=== PATIENT | male | born 1935 | race Caucasian/White ===

== ENCOUNTER 2018-11-10 10:46 | Inpatient (IN) | payer MEDICARE ==
[2018-11-10] MEDS ORDERED: ASPIRIN 81 MG PO STA (11:08)
--- NOTE | 2018-11-10 11:13 | ED ---
General Adult HPI - General Chief complaint: Shortness of Breath Stated complaint: SOB Time Seen by Provider: 11/10/18 10:58 Source: patient, EMS Mode of arrival: EMS Limitations: no limitations - History of Present Illness Initial comments: Patient is an 83-year-old male with a history of hypertension and high cholesterol who presents with a chief complaint of acute onset shortness of breath and lightheadedness while mowing his lawn. Symptom onset was about 2 hours ago. Patient states that he sometimes gets winded when mowing his lawn as he is a 4 hour however this was worse, and his symptoms did not alleviate as they usually do with rest. The patient cannot identify any other inciting incidences. There are no aggravating or alleviating factors. Timing is constant. Patient has not had any previous cardiac history or strokes. He has a family history of a congenital heart condition and his father. He is not diabetic. The patient denied chest pain, nausea or vomiting. Patient states that he had a stress test about 2 years ago with an annual physical. - Related Data Home Medications Medication Instructions Recorded Confirmed Cephalexin [Keflex] 500 mg PO TID 11/10/18 11/10/18 Ramipril 5 mg PO DAILY 11/10/18 11/10/18 Ramipril 10 mg PO DAILY 11/10/18 11/10/18 Simvastatin [Zocor] 20 mg PO DAILY 11/10/18 11/10/18 Allergies Allergy/AdvReac Type Severity Reaction Status Date / Time No Known Allergies Allergy Verified 11/10/18 11:47 Review of Systems ROS Statement: Those systems with pertinent positive or pertinent negative responses have been documented in the HPI. ROS Other: All systems not noted in ROS Statement are negative. Respiratory: Reports: dyspnea Cardiovascular: Reports: dyspnea on exertion Past Medical History Past Medical History: Cancer, Hyperlipidemia, Hypertension, Osteoarthritis (OA), Prostate Disorder Additional Past Medical History / Comment(s): malignant melanoma History of Any Multi-Drug Resistant Organisms: None Reported Additional Past Surgical History / Comment(s): skin cancer removal Past Psychological History: No Psychological Hx Reported Smoking Status: Never smoker Past Alcohol Use History: Occasional Past Drug Use History: None Reported General Exam Limitations: no limitations General appearance: alert, in no apparent distress Head exam: Present: atraumatic, normocephalic Eye exam: Present: normal appearance ENT exam: Present: normal exam Neck exam: Present: normal inspection Respiratory exam: Present: normal lung sounds bilaterally. Absent: respiratory distress, wheezes Cardiovascular Exam: Present: regular rate, normal rhythm GI/Abdominal exam: Present: soft. Absent: distended, tenderness Rectal exam: Present: deferred Extremities exam: Present: normal inspection Back exam: Present: normal inspection Neurological exam: Present: alert, oriented X3 Psychiatric exam: Present: normal affect, normal mood Skin exam: Present: warm, dry, intact, other (patient has excisional biopsy wounds on his right posterior shoulder) Course Vital Signs 11/10/18 11/10/18 11/10/18 10:49 11:30 12:00 Temperature 97.2 F L Pulse Rate 95 89 86 Respiratory 18 20 17 Rate Blood Pressure 137/87 152/86 138/76 O2 Sat by Pulse 93 L 96 96 Oximetry 11/10/18 12:30 Temperature Pulse Rate 84 Respiratory 18 Rate Blood Pressure 140/82 O2 Sat by Pulse 95 Oximetry Medical Decision Making - Medical Decision Making Patient is an 83-year-old male who presents with a chief complaint of exertional shortness of breath or mowing his lawn. On initial evaluation, vitals are stable, patient is in no acute distress. He will be evaluated with basic labs including cardiac enzymes and d-dimer. He was given aspirin and will be sent for a chest x-ray. At this time, I'm concerned for an anginal picture, I recommended admission for further cardiac evaluation. Patient is agreeable. 2:01 PM D-dimer is extremely elevated over 13, CT of the chest with contrast shows a large burden central pulmonary embolism bilateral cell embolism. This extends to the secondary and distal branches. Patient started on high intensity heparin. We'll discuss pulmonology whether or not the patient would benefit from transfer. Patient remains ambulatory in the emergency department, his vital signs are stable. Case discussed with Dr. Gan who states that he feels comfortable admitting the patient to this hospital. Patient started on high intensity heparin. Echocardiogram ordered. 2:44 PM Case discussed with some physician who agrees to admission. Patient agreeable with the care plan. - Lab Data Result diagrams: 11/10/18 10:57 11/10/18 10:57 Lab Results 11/10/18 11/10/18 11/10/18 Range/Units 10:57 10:57 10:57 WBC 10.3 (3.8-10.6) k/uL RBC 4.98 (4.30-5.90) m/uL Hgb 14.5 (13.0-17.5) gm/dL Hct 45.0 (39.0-53.0) % MCV 90.2 (80.0-100.0) fL MCH 29.2 (25.0-35.0) pg MCHC 32.3 (31.0-37.0) g/dL RDW 14.4 (11.5-15.5) % Plt Count 227 (150-450) k/uL Neutrophils % 70 % Lymphocytes % 13 % Monocytes % 7 % Eosinophils % 6 % Basophils % 1 % Neutrophils # 7.3 (1.3-7.7) k/uL Lymphocytes # 1.3 (1.0-4.8) k/uL Monocytes # 0.7 (0-1.0) k/uL Eosinophils # 0.7 (0-0.7) k/uL Basophils # 0.1 (0-0.2) k/uL D-Dimer 13.67 H (<0.60) mg/L FEU Sodium 139 (137-145) mmol/L Potassium 4.7 (3.5-5.1) mmol/L Chloride 106 (98-107) mmol/L Carbon Dioxide 24 (22-30) mmol/L Anion Gap 9 mmol/L BUN 21 H (9-20) mg/dL Creatinine 0.90 (0.66-1.25) mg/dL Est GFR (CKD-EPI)AfAm >90 (>60 ml/min/1.73 sqM) Est GFR (CKD-EPI)NonAf 79 (>60 ml/min/1.73 sqM) Glucose 119 H (74-99) mg/dL Calcium 9.3 (8.4-10.2) mg/dL Troponin I (0.000-0.034) ng/mL NT-Pro-B Natriuret Pep pg/mL 11/10/18 11/10/18 Range/Units 10:57 10:57 WBC (3.8-10.6) k/uL RBC (4.30-5.90) m/uL Hgb (13.0-17.5) gm/dL Hct (39.0-53.0) % MCV (80.0-100.0) fL MCH (25.0-35.0) pg MCHC (31.0-37.0) g/dL RDW (11.5-15.5) % Plt Count (150-450) k/uL Neutrophils % % Lymphocytes % % Monocytes % % Eosinophils % % Basophils % % Neutrophils # (1.3-7.7) k/uL Lymphocytes # (1.0-4.8) k/uL Monocytes # (0-1.0) k/uL Eosinophils # (0-0.7) k/uL Basophils # (0-0.2) k/uL D-Dimer (<0.60) mg/L FEU Sodium (137-145) mmol/L Potassium (3.5-5.1) mmol/L Chloride (98-107) mmol/L Carbon Dioxide (22-30) mmol/L Anion Gap mmol/L BUN (9-20) mg/dL Creatinine (0.66-1.25) mg/dL Est GFR (CKD-EPI)AfAm (>60 ml/min/1.73 sqM) Est GFR (CKD-EPI)NonAf (>60 ml/min/1.73 sqM) Glucose (74-99) mg/dL Calcium (8.4-10.2) mg/dL Troponin I 0.015 (0.000-0.034) ng/mL NT-Pro-B Natriuret Pep 209 pg/mL Disposition Clinical Impression: SOB (shortness of breath), Saddle pulmonary embolus Disposition: ADMITTED IP TO THIS HOSP Condition: Fair Is patient prescribed a controlled substance at d/c from ED?: No Referrals: Arti Atkinson MD [Primary Care Provider] - 1-2 days Decision to Admit Reason: Admit from EC - Out of Hospital Transfer - Req. Specs Out of Hospital Transfer - Requested Specifics: Adult ICU
--- NOTE | 2018-11-10 11:30 | XR ---
EXAMINATION TYPE: XR chest 2V DATE OF EXAM: 11/10/2018 COMPARISON: NONE HISTORY: Shortness of breath, pain TECHNIQUE: Frontal and lateral views of the chest are obtained. FINDINGS: There is no focal air space opacity, pleural effusion, or pneumothorax seen. The cardiac silhouette size is within normal limits. There are cardiac leads. Patient is rotated. Flattening of t he hemidiaphragms may indicate air trapping, COPD. The osseous structures are intact. IMPRESSION: No acute cardiopulmonary process.
[2018-11-10 11:40] LABS: Basophils # (A) 0.1 k/uL (0-0.2); Basophils % (A) 1 %; Eosinophils # (A) 0.7 k/uL (0-0.7); Eosinophils % (A) 6 %; HGB 14.5 gm/dL (13.0-17.5); Lymphocytes # (A) 1.3 k/uL (1.0-4.8); Lymphocytes % (A) 13 %; MCH 29.2 pg (25.0-35.0); MCHC 32.3 g/dL (31.0-37.0); MCV 90.2 fL (80.0-100.0); Mean Platelet Volume 7.8; Monocytes # (A) 0.7 k/uL (0-1.0); Monocytes % (A) 7 %; Neutrophils # (A) 7.3 k/uL (1.3-7.7); Neutrophils % (A) 70 %; Platelet Count 227 k/uL (150-450); RBC 4.98 m/uL (4.30-5.90); RDW 14.4 % (11.5-15.5); WBC 10.3 k/uL (3.8-10.6)
[2018-11-10 11:51] LABS: African American GFR (CKD) >90 (>60 ml/min/1.73 sqM); Anion Gap 9 mmol/L; Blood Urea Nitrogen 21 mg/dL (9-20); Calcium 9.3 mg/dL (8.4-10.2); Carbon Dioxide 24 mmol/L (22-30); Chloride 106 mmol/L (98-107); Glucose 119 mg/dL (74-99); Sodium 139 mmol/L (137-145)
[2018-11-10 11:52] LABS: Potassium 4.7 mmol/L (3.5-5.1)
--- NOTE | 2018-11-10 13:45 | CT ---
EXAMINATION TYPE: CT chest angio for PE DATE OF EXAM: 11/10/2018 COMPARISON: HISTORY: Shortness of breath CT DLP: 403.7 mGycm Automated exposure control for dose reduction was used. CONTRAST: CT Chest for pulmonary embolism performed with with IV Contrast, patient injected with 100 mL of Isov ue 370. FINDINGS: LUNGS: The lungs are grossly clear, there is no concerning parenchymal mass or nodule identified. T here is no pleural effusion or pneumothorax seen. The tracheobronchial tree is patent. Calcified 2 m m right upper lobe pleural-based nodule. Emphysematous changes with a bleb noted in the left lower lo be. Subsegmental consolidation most typical of atelectasis. MEDIASTINUM: There is large central pulmonary embolism extending into the secondary and distal branch es. Findings are compatible with a saddle pulmonary embolism extending across both the right and left main pulmonary arteries. OTHER: Simple appearing left renal cyst. Hypertrophic and degenerative change of the spine. Hypodens e lesions in the liver are indeterminate but most likely related to simple cysts measuring 3 Hounsfie ld units. Small hiatal hernia noted. IMPRESSION: Large burden central pulmonary embolism compatible with saddle embolism. Extends into the secondary a nd distal branches.
[2018-11-10] MEDS ORDERED: HEPARIN SODIUM,PORCINE 10,000 UNIT/ML 1 ML VIAL IV ONE (13:59)
[2018-11-10] MEDS ORDERED: HEPARIN SODIUM,PORCINE 5,000 UNIT/ML 1 ML VIAL IV PRN (13:59)
[2018-11-10] MEDS ORDERED: NALOXONE 0.4 MG/ML 1 ML VIAL IV PRN (14:45)
[2018-11-10 15:02] LABS: INR 0.9 (<1.2); Partial Thromboplastin Time 22.7 sec (22.0-30.0); Prothrombin Time 9.9 sec (9.0-12.0)
[2018-11-10] MEDS: HEPARIN SOD,PORK IN 0.45% NACL 25,000 UNIT in 0.45% NACL 1 250ML.BAG IV SCH (15:42)
[2018-11-10] MEDS: SODIUM CHLORIDE 0.9% 1,000 ML IV SCH (15:45)
[2018-11-10 16:17] VITALS: BMI 27.8
[2018-11-10 16:18] LABS: Glucose,Whole Blood 84 mg/dL (75-99)
--- NOTE | 2018-11-10 16:51 | P.HPIM ---
History of Present Illness H&P Date: 11/10/18 Chief Complaint: chest pain 83-year-old male with PMH of hypertension, hyperlipidemia presents the ED for shortness of breath and lightheadedness. Patient states that he was 10 minutes into moving his lawn when he experienced a sudden onset of shortness of breath associated with light headedness. Patient states that he is usually able to mow the lawn without difficulty. He mows the lawn once a week for 30 minute to one hour. Patient states that he walks to his mailbox daily, which is [address] without difficulty. He is able to climb one flight of stairs without difficulty. Patient does reports frequent trips to [place], most recently in mid-September. Him and his spent 3 days driving back this time. Patient denies any headache, lower extremity edema, nausea, vomiting, cough, chest, palpitations, changes in urination or bowel habits. No changes in appetite or weight. In the ED, vital signs were stable. CBC was unremarkable. Coagulation panel was negative. CMP showed a BUN of 21 and glucose of 119. Troponin was 0.015. BNP was 209. D-dimer was elevated at 13.67. CTA of the chest showed saddle embolus. Patient is admitted to ICU for hemodynamic monitoring with pulmonology on consult. Review of Systems Pertinent positives and negatives as discussed in HPI, a complete review of systems was performed and all other systems are negative. Past Medical History Past Medical History: Cancer, Hyperlipidemia, Hypertension, Osteoarthritis (OA), Prostate Disorder Additional Past Medical History / Comment(s): malignant melanoma History of Any Multi-Drug Resistant Organisms: None Reported Additional Past Surgical History / Comment(s): skin cancer removal Smoking Status: Never smoker Medications and Allergies Home Medications Medication Instructions Recorded Confirmed Type Cephalexin [Keflex] 500 mg PO TID 11/10/18 11/10/18 History Ramipril 5 mg PO DAILY 11/10/18 11/10/18 History Ramipril 10 mg PO DAILY 11/10/18 11/10/18 History Simvastatin [Zocor] 20 mg PO DAILY 11/10/18 11/10/18 History Allergies Allergy/AdvReac Type Severity Reaction Status Date / Time No Known Allergies Allergy Verified 11/10/18 11:47 Physical Exam Vitals: Vital Signs Temp Pulse Pulse Resp BP BP Pulse Ox 11/10/18 15:05 98.5 F 93 18 129/96 11/10/18 15:00 88 17 121/73 93 L 11/10/18 12:30 84 18 140/82 95 11/10/18 12:00 86 17 138/76 96 11/10/18 11:30 89 20 152/86 96 11/10/18 10:49 97.2 F L 95 18 137/87 93 L Intake and Output 11/10/18 11/10/18 11/10/18 06:59 14:59 22:59 Other: Weight 92.986 kg General: [non toxic], [no distress], [appears at stated age] Derm: [warm], [dry] Head: [atraumatic], [normocephalic], [symmetric], [flap was stitches over the left neck, no erythema] Eyes: [EOMI], [no lid lag], [anicteric sclera] Mouth: [no lip lesion], [mucus membranes moist] Cardiovascular: [S1S2 reg], [no murmur], [positive DP pulse bilateral], Lungs: [CTA bilateral], [no rhonchi, no rales] , [no accessory muscle use] Abdominal: [soft], [ nontender to palpation], [no guarding], [no appreciable o rganomegaly] Ext: [no gross muscle atrophy], [no edema], [no contractures] Neuro: [ CN II-XI grossly intact], [no focal neuro deficits] Psych: [Alert], [oriented], [appropriate affect] Results CBC & Chem 7: 11/10/18 10:57 11/10/18 10:57 Labs: Abnormal Lab Results - Last 24 Hours (Table) 11/10/18 11/10/18 Range/Units 10:57 10:57 D-Dimer 13.67 H (<0.60) mg/L FEU BUN 21 H (9-20) mg/dL Glucose 119 H (74-99) mg/dL Assessment and Plan Assessment: Assessment and Plan Acute pulmonary embolus Elevated BUN History of skin cancer Hypertension Hyperlipidemia Elevated d-dimer. As seen on chest CTA. Risk factors include history of cancer and drives to [place]. Plans: O2 per NC to maintain O2 saturation greater than 92%. Telemetry monitoring. Start heparin drip. Follow-up echocardiogram. Follow pulmonology consultation. Follow hematology consultation. BUN 21, creatinine within normal limits. Likely secondary to dehydration. Plans: Continue normal saline at 75 mL per hour. Daily BMP. Recently underwent biopsy of the right shoulder and flap performed on the left neck. Plans: Continue Keflex as prescribed. Follow [facility] in the outpatient setting. BP 129/96. Plans: Continue ramipril. Monitor vitals, adjust medications as necessary. Plans: Continue Zocor. Patient admitted for saddle embolus. Started on heparin drip. Pulmonology and hematology consulted. He names his Erika decision-maker in the case that he can't make decisions for himself. Patient reiterates wanting to remain full code. DVT prophylaxis: [Heparin drip] Discussed with: [Patient] Anticipated discharge: [2-3 days] Anticipated discharge place: [Home] A total of [45] minutes was spent on the care of this complex patient more than 50% of the time was spent in counseling and care coordination.
--- NOTE | 2018-11-10 18:05 | P.CNPUL ---
History of Present Illness Consult date: 11/10/18 Reason for consult: pulmonary embolism History of present illness: A 83-year-old male patient, with known history of hypertension and hyperlipid emia, presents today with sudden onset shortness of breath. The patient is retired. The patient is back and forth to [place] and his last trip back to [place] was in mid September. He also has history of a basal cell carcinoma of the skin behind his left ear and the patient underwent a surgical resection by dermatology few weeks back. He states that he is quite active and he does not need a sedentary lifestyle. No cough pain. No swelling in lower extremities. No pleurisy. No hemoptysis. He presented with worsening shortness of breath and some lightheadedness. This started this morning. His vital signs are all stable. His troponins were at 0.015. BNP was 209. D-dimer was positive at 13.67. CAT scan of the chest showed a saddle embolism and the patient was started on IV heparin and the patient was transferred to the intensive care unit. At this point in time, the patient is on 2 L of oxygen nasal cannula. No cough. No sputum production. No pleurisy. No chest pain. Doppler of the lower extremity and echocardiogram is still pending for now. The patient has never taken any form of blood thinners. No history of any GI bleed. No hematemesis. No melanotic stools. No other complaints otherwise for now. No personal or family history of previous DVT or pulmonary embolism. He has had previous history of melanoma that was resected from the left shoulder area and previous history of another melanoma that was resected from his left lower extremity. No history of any metastatic disease regarding his skin cancer. Review of Systems Constitutional: Denies chills, Denies fever Eyes: denies as per HPI, denies blurred vision, denies bulging eye, denies decreased vision, denies diplopia, denies discharge, denies dry eye, denies irritation, denies itching, denies pain, denies photophobia, denies loss of peripheral vision, denies loss of vision, denies tunnel vision/blind spots Ears: deny: decreased hearing, ear discharge, earache, tinnitus Ears, nose, mouth and throat: Denies headache, Denies sore throat Cardiovascular: Reports decreased exercise tolerance Respiratory: Reports dyspnea Gastrointestinal: Reports as per HPI Genitourinary: Reports as per HPI Musculoskeletal: Reports as per HPI Musculoskeletal: absent: ankle pain, ankle stiffness, ankle swelling Integumentary: Denies pruritus, Denies rash Neurological: Reports as per HPI Psychiatric: Reports as per HPI Endocrine: Reports as per HPI Hematologic/Lymphatic: Reports as per HPI Allergic/Immunologic: Reports as per HPI Past Medical History Past Medical History: Cancer, Hyperlipidemia, Hypertension, Osteoarthritis (OA), Prostate Disorder Additional Past Medical History / Comment(s): malignant melanoma resected from t he left shoulder and lower extremity in addition to a 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 History of Any Multi-Drug Resistant Organisms: None Reported Additional Past Surgical History / Comment(s): skin cancer removal Smoking Status: Never smoker Medications and Allergies Home Medications Medication Instructions Recorded Confirmed Type Cephalexin [Keflex] 500 mg PO TID 11/10/18 11/10/18 History Ramipril 5 mg PO DAILY 11/10/18 11/10/18 History Ramipril 10 mg PO DAILY 11/10/18 11/10/18 History Simvastatin [Zocor] 20 mg PO DAILY 11/10/18 11/10/18 History Allergies Allergy/AdvReac Type Severity Reaction Status Date / Time No Known Allergies Allergy Verified 11/10/18 11:47 Physical Exam Vitals: Vital Signs Temp Pulse Pulse Resp BP BP Pulse Ox 11/10/18 17:30 94 19 128/98 94 L 11/10/18 17:00 91 18 142/90 97 11/10/18 16:30 89 20 129/96 97 11/10/18 16:00 98.4 F 95 18 143/102 93 L 11/10/18 15:05 98.5 F 93 18 129/96 11/10/18 15:00 88 17 121/73 93 L 11/10/18 12:30 84 18 140/82 95 11/10/18 12:00 86 17 138/76 96 11/10/18 11:30 89 20 152/86 96 11/10/18 10:49 97.2 F L 95 18 137/87 93 L Intake and Output 11/10/18 11/10/18 11/10/18 06:59 14:59 22:59 Intake Total 300 Output Total 0 Balance 300 Intake: IV 150 Sodium Chloride 0.9% 1, 150 000 ml @ 75 mls/hr IV . [id number] [facility] Rx#:[id number] Oral 150 Output: Urine 0 Other: Voiding Method Toilet Weight 92.986 kg Gen. appearance, comfortable likely distress Head exam was generally normal. There was no scleral icterus or corneal arcus. Mucous membranes were moist. Neck was supple and without jugular venous distension, thyromegaly, or carotid bruits. Carotids were easily palpable bilaterally. There was no adenopathy. The patient has a skin lesion resected from the left posterior area and the children are all in place. The surgical wound site is dry clean and intact. Lungs were clear to auscultation and percussion, and with normal diaphragmatic excursion. No wheezes or rales were noted. Cardiac exam revealed the PMI to be normally situated and sized. The rhythm was regular and no extrasystoles were noted during several minutes of auscultation. The first and second heart sounds were normal and physiologic splitting of the second heart sound was noted. There were no murmurs, rubs, clicks, or gallops. Abdominal exam revealed normal bowel sounds. The abdomen was soft, non-tender, and without masses, organomegaly, or appreciable enlargement of the abdominal aorta. Examination of the extremities revealed easily palpable radial, femoral and pedal pulses. There was no cyanosis, clubbing or edema. Examination of the skin revealed no evidence of significant rashes, suspicious appearing nevi or other concerning lesions. The patient has scars of previous melanoma resection from his left shoulder area and lower extremity/thigh area. The patient also has another area of incision that is healing for now and the sutures are in place and the retroauricular area behind his left ear. Neurologically is awake and alert and there is no focal neurological deficits. Results - Laboratory Findings CBC and BMP: 11/10/18 10:57 11/10/18 10:57 PT/INR, D-dimer PT 9.9 sec (9.0-12.0) 11/10/18 10:57 INR 0.9 (<1.2) 11/10/18 10:57 D-Dimer 13.67 mg/L FEU (<0.60) H 11/10/18 10:57 Abnormal lab findings: Abnormal Labs 11/10/18 11/10/18 10:57 10:57 D-Dimer 13.67 H BUN 21 H Glucose 119 H - Diagnostic Findings CT scan - chest: image reviewed Assessment and Plan Plan: 1 acute bilateral pulmonary embolism with secondary shortness of breath, unprovoked event currently on IV heparin. Hemodynamically stable 2 shortness of breath secondary to above 3 history of melanoma 4 history of basal cell carcinoma of the posterior scalp and the retroauricular area and the patient had a surgical resection 5 hypertension Plan Continue IV heparin. Obtain Doppler of the lower extremity. Obtain echocardiogram. Patient is hemodynamically stable. This is an unprovoked event and the patient will likely need long-term anticoagulation. We are going to continue the IV heparin for now and try to switch the patient to a newer agent anticoagulants with the next 24-48 hours. We'll continue to follow.
--- NOTE | 2018-11-10 19:12 | US ---
EXAMINATION TYPE: US venous doppler duplex LE DATE OF EXAM: 11/10/2018 6:30 PM COMPARISON: NONE CLINICAL HISTORY: Sattle PE. Sattle PE per order. Limited HX. SIDE PERFORMED: Bilateral TECHNIQUE: The lower extremity deep venous system is examined utilizing real time linear array sonog darleen with graded compression, doppler sonography and color-flow sonography. VESSELS IMAGED: External Iliac Vein (EIV) Common Femoral Vein Deep Femoral Vein Greater Saphenous Vein * Femoral Vein Popliteal Vein Proximal Calf Veins (* superficial vessels) Right Leg: Thrombus seen extending from right proximal calf veins up to the mid femoral vein. Thread y flow seen mid and distal femoral vein. Mid and distal femoral vein do not compress completely. Popl iteal vein shows thrombus and is noncompressible. Thready flow seen in popliteal vein. Left Leg: No evidence of DVT at this time. IMPRESSION: No evidence of deep venous thrombosis in the left leg. There is evidence of acute and chronic deep venous thrombosis in the right leg.
[2018-11-10] MEDS: CEPHALEXIN 500 MG CAP PO SCH (21:47)
[2018-11-11] MEDS: SODIUM CHLORIDE 0.9% 1,000 ML IV SCH ×2 (05:47→18:44)
[2018-11-11 05:49] LABS: Basophils # (A) 0.1 k/uL (0-0.2); Basophils % (A) 1 %; Eosinophils # (A) 0.6 k/uL (0-0.7); Eosinophils % (A) 7 %; HCT 42.8 % (39.0-53.0); HGB 13.4 gm/dL (13.0-17.5); Lymphocytes # (A) 1.3 k/uL (1.0-4.8); Lymphocytes % (A) 14 %; MCH 28.4 pg (25.0-35.0); MCHC 31.3 g/dL (31.0-37.0); MCV 90.7 fL (80.0-100.0); Mean Platelet Volume 8.1; Monocytes # (A) 0.6 k/uL (0-1.0); Monocytes % (A) 7 %; Neutrophils # (A) 6.4 k/uL (1.3-7.7); Neutrophils % (A) 69 %; Platelet Count 209 k/uL (150-450); RBC 4.72 m/uL (4.30-5.90); RDW 14.3 % (11.5-15.5); WBC 9.2 k/uL (3.8-10.6)
[2018-11-11 06:09] LABS: African American GFR (CKD) >90 (>60 ml/min/1.73 sqM); Anion Gap 6 mmol/L; Blood Urea Nitrogen 17 mg/dL (9-20); Calcium 8.7 mg/dL (8.4-10.2); Carbon Dioxide 24 mmol/L (22-30); Chloride 108 mmol/L (98-107); Glucose 97 mg/dL (74-99); Potassium 4.5 mmol/L (3.5-5.1); Sodium 138 mmol/L (137-145)
[2018-11-11] MEDS: HEPARIN SOD,PORK IN 0.45% NACL 25,000 UNIT in 0.45% NACL 1 250ML.BAG IV SCH (06:35)
[2018-11-11] MEDS: PANTOPRAZOLE 40 MG TABLET PO SCH (08:19)
[2018-11-11] MEDS: CEPHALEXIN 500 MG CAP PO SCH ×3 (08:19→20:59)
[2018-11-11] MEDS: LISINOPRIL 20 MG TAB PO SCH (08:19)
[2018-11-11] MEDS: ATORVASTATIN 10 MG TAB PO SCH (08:19)
[2018-11-11] MEDS ORDERED: RAMIPRIL 5 MG PO SCH (09:00)
--- NOTE | 2018-11-11 11:55 | ECHOF ---
Referral Reason:saddle PE MEASUREMENTS -------- HEIGHT: 177.8 cm WEIGHT: 93.0 kg BP: RVIDd: 4.0 cm (< 3.3) IVSd: 1.2 cm (0.6 - 1.1) LVIDd: 2.9 cm (3.9 - 5.3) LVPWd: 1.1 cm (0.6 - 1.1) IVSs: 1.3 cm LVIDs: 1.8 cm LVPWs: 1.6 cm LAESV Index (A-L): 22.37 ml/m Ao Diam: 3.2 cm (2.0 - 3.7) AV Cusp: 1.6 cm (1.5 - 2.6) LA Diam: 2.5 cm (2.7 - 3.8) MV E Awais: 1.08 m/s MV DecT: 75 ms MV A Awais: 0.75 m/s MV E/A Ratio: 1.45 RAP: 5.00 mmHg RVSP: 53.62 mmHg FINDINGS -------- Sinus rhythm. This was a technically adequate study. The left ventricular size is normal. There is borderline concentric left ventricular hypertrophy. Overall left ventricular systolic function is normal with, an EF between 55 - 60 % Both the mean at rial pressure as well as the LV end diastolic pressure is elevated 30.20. The right ventricle is moderately enlarged. The left atrial size is normal. Normal LA size by volume 22+/-6 ml/m2. The right atrial size is normal. Aortic valve is trileaflet and is mildly thickened. The mitral valve is normal. The mitral valve leaflets are mildly thickened. Mild mitral regurgita tion is present. Mild tricuspid regurgitation present. There is moderate pulmonary hypertension. The right ventric ular systolic pressure, as measured by Doppler, is 53.62mmHg. There is no pulmonic regurgitation present. The aortic root size is normal. Normal inferior vena cava with normal inspiratory collapse consistent with estimated right atrial pre ssure of 5 mmHg. There is no pericardial effusion. CONCLUSIONS -------- 1. Sinus rhythm. 2. This was a technically adequate study. 3. The left ventricular size is normal. 4. There is borderline concentric left ventricular hypertrophy. 5. Overall left ventricular systolic function is normal with, an EF between 55 - 60 %. 6. Both the mean atrial pressure as well as the LV end diastolic pressure is elevated 30.20. 7. The right ventricle is moderately enlarged. 8. The left atrial size is normal. 9. Normal LA size by volume 22+/-6 ml/m2. 10. The right atrial size is normal. 11. Aortic valve is trileaflet and is mildly thickened. 12. The mitral valve is normal. 13. The mitral valve leaflets are mildly thickened. 14. Mild mitral regurgitation is present. 15. Mild tricuspid regurgitation present. 16. There is moderate pulmonary hypertension. 17. The right ventricular systolic pressure, as measured by Doppler, is 53.62mmHg. 18. There is no pulmonic regurgitation present. 19. The aortic root size is normal. 20. Normal inferior vena cava with normal inspiratory collapse consistent with estimated right atrial pressure of 5 mmHg. 21. There is no pericardial effusion. [employer]: Homa Hightower RDCS
--- NOTE | 2018-11-11 12:47 | P.PN ---
Subjective Progress Note Date: 11/11/18 Principal diagnosis: PE Patient was seen and examined. No acute events overnight. Patient reports no chest pain, shortness of breath or palpitations. No nausea or vomiting. No fever or chills. He denies any dizziness. Objective - Vital Signs Vital signs: Vital Signs Temp 98.6 F 11/11/18 12:00 Pulse 80 11/11/18 12:00 Resp 20 11/11/18 12:00 BP 148/92 11/11/18 12:00 Pulse Ox 95 11/11/18 12:00 Intake & Output 11/10/18 11/11/18 11/11/18 18:59 06:59 18:59 Intake Total 375 1173.246 785 Output Total 0 450 550 Balance 375 723.246 235 Weight 92.986 kg 93.1 kg Intake: IV 225 900 225 Sodium Chloride 0.9% 1, 225 900 225 000 ml @ 20 mls/hr IV . Q24H [facility] Rx#:[id number] Intake, IV Titration 213.246 60 Amount Heparin Sod,Pork in 0.45% 213.246 NaCl 25,000 unit In 0.45 % NaCl 1 250ml.bag @ 18 UNITS/KG/HR 16.737 mls/hr IV .[id number] [facility] Rx#: [id number] Sodium Chloride 0.9% 1, 60 000 ml @ 20 mls/hr IV . Q24H [facility] Rx#:[id number] Oral 150 60 500 Output: Urine 0 450 550 Other: Voiding Method Toilet Urinal Urinal # Voids 1 # Bowel Movements 1 - Exam General: [non toxic], [no distress], [appears at stated age] Derm: [warm], [dry] Head: [atraumatic], [normocephalic], [symmetric], [flap was stitches over the left neck, no erythema] Eyes: [EOMI], [no lid lag], [anicteric sclera] Mouth: [no lip lesion], [mucus membranes moist] Cardiovascular: [S1S2 reg], [no murmur], [positive DP pulse bilateral], Lungs: [CTA bilateral], [no rhonchi, no rales] , [no accessory muscle use] Abdominal: [soft], [ nontender to palpation], [no guarding], [no appreciable organomegaly] Ext: [no gross muscle atrophy], [no edema], [no contractures] Neuro: [ CN II-XI grossly intact], [no focal neuro deficits] Psych: [Alert], [oriented], [appropriate affect] - Labs CBC & Chem 7: 11/11/18 04:51 11/11/18 04:51 Labs: Abnormal Lab Results - Last 24 Hours (Table) 11/10/18 11/11/18 11/11/18 Range/Units 19:53 04:51 04:51 APTT 168.9 H* 88.3 H (22.0-30.0) sec Chloride 108 H (98-107) mmol/L 11/11/18 Range/Units 11:57 APTT 71.1 H (22.0-30.0) sec Chloride (98-107) mmol/L Assessment and Plan Assessment: Assessment and Plan Acute pulmonary embolus Elevated BUN History of skin cancer Hypertension Hyperlipidemia Elevated d-dimer. As seen on chest CTA. Risk factors include history of cancer and drives to [place]. Lower extremity duplex shows right lower extremity DVT. Echocardiogram shows EF 55-60% with concentric LVH. Plans: O2 per NC to maintain O2 saturation greater than 92%. Telemetry monitoring. Start heparin drip. Foll ow pulmonology consultation. Follow hematology consultation. BUN 21, creatinine within normal limits. Likely secondary to dehydration. Plans: Resolved. Recently underwent biopsy of the right shoulder and flap performed on the left neck. Plans: Continue Keflex as prescribed. Follow Gudelia in the outpatient setting. BP 148/92. Plans: Continue ramipril. Monitor vitals, adjust medications as ne cessary. Plans: Continue Zocor. Patient admitted for saddle embolus. Started on heparin drip. Pulmonology and hematology consulted. Hemodynamic monitoring. Likely DC in 2-3 days.
[2018-11-11 13:38] LABS: ALT 34 U/L (21-72); AST 22 U/L (17-59); Albumin 3.4 g/dL (3.5-5.0); Alkaline Phosphatase 60 U/L (38-126); LDH 669 U/L (313-618); Total Bilirubin 0.7 mg/dL (0.2-1.3); Total Protein 5.8 g/dL (6.3-8.2)
--- NOTE | 2018-11-11 13:55 | P.CONS ---
History of Present Illness - Reason for Consult Consult date: 11/11/18 New Acute DVT and PE Requesting physician: Jaquan Trinidad - Chief Complaint SOB - History of Present Illness Mr. Solomon is an 83-year-old male with PMH of hypertension, hyperlipidemia who presented to the ED for shortness of breath and lightheadedness. CTA reported S addle PE and Lower extremity doppler with RLE acute DVT. He denies history of DVT or PE in past. He was apparently 10 minutes into moving his lawn when he experienced a sudden onset of shortness of breath associated with light headedness. Patient states that he is usually able to mow the lawn without difficulty. He mows the lawn once a week for 30 minute to one hour. During discussion with patient he is relatively active at baseline. He did however recently return from a 3 day car ride from [place]. Patient does reports frequent trips to [place], most recently in mid-September. Him and his spent 3 days driving back this time. Patient is admitted to ICU for hemodynamic monitoring. He apparently did have a few cancerous skin lesions removed, one behind ear which has been mild bleeding since beginning anticoagulation. 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 History of Any Multi-Drug Resistant Organisms: None Reported Additional Past Surgical History / Comment(s): skin cancer removal Smoking Status: Never smoker Medications and Allergies Home Medications Medication Instructions Recorded Confirmed Type Cephalexin [Keflex] 500 mg PO TID 11/10/18 11/10/18 History Ramipril 5 mg PO DAILY 11/10/18 11/10/18 History Ramipril 10 mg PO DAILY 11/10/18 11/10/18 History Simvastatin [Zocor] 20 mg PO DAILY 11/10/18 11/10/18 History Apixaban [Eliquis Starter Pack 0 mg PO DIRECTED 30 Days #1 pack 11/11/18 Rx (for VTE)] Allergies Allergy/AdvReac Type Severity Reaction Status Date / Time No Known Allergies Allergy Verified 11/10/18 11:47 Physical Exam Vitals: Vital Signs Temp Pulse Pulse Resp BP BP Pulse Ox 11/11/18 13:00 90 17 146/93 94 L 11/11/18 12:00 98.6 F 80 20 148/92 95 11/11/18 11:00 85 17 132/100 94 L 11/11/18 10:00 90 21 141/103 94 L 11/11/18 09:00 81 19 144/92 94 L 11/11/18 08:00 98.3 F 89 22 144/92 96 11/11/18 07:00 81 19 141/91 95 11/11/18 06:00 76 13 149/89 95 11/11/18 05:00 87 23 122/85 92 L 11/11/18 04:00 97.8 F 73 15 122/84 94 L 11/11/18 03:00 80 16 122/92 93 L 11/11/18 02:00 71 13 130/89 94 L 11/11/18 01:00 98.0 F 77 14 116/89 92 L 11/11/18 00:00 84 12 113/85 94 L 11/10/18 23:00 76 16 138/89 91 L 11/10/18 22:00 80 17 128/80 94 L 11/10/18 21:00 87 15 132/84 93 L 11/10/18 20:00 97.9 F 84 18 136/95 94 L 11/10/18 19:30 82 20 140/87 93 L 11/10/18 19:00 88 20 128/94 92 L 11/10/18 18:30 90 16 139/92 96 11/10/18 18:00 84 16 144/97 95 11/10/18 17:30 94 19 128/98 94 L 11/10/18 17:00 91 18 142/90 97 11/10/18 16:30 89 20 129/96 97 11/10/18 16:00 98.4 F 95 18 143/102 93 L 11/10/18 15:05 98.5 F 93 18 129/96 11/10/18 15:00 88 17 121/73 93 L Intake and Output 11/10/18 11/11/18 11/11/18 22:59 06:59 14:59 Intake Total 822.869 725.377 805 Output Total 0 450 550 Balance 822.869 275.377 255 Intake: IV 525 600 225 Sodium Chloride 0.9% 1, 525 600 225 000 ml @ 20 mls/hr IV . Q24H [facility] Rx#:[id number] Intake, IV Titration 87.869 125.377 80 Amount Heparin Sod,Pork in 0.45% 87.869 125.377 NaCl 25,000 unit In 0.45 % NaCl 1 250ml.bag @ 18 UNITS/KG/HR 16.737 mls/hr IV .[id number] [facility] Rx#: [id number] Sodium Chloride 0.9% 1, 80 000 ml @ 20 mls/hr IV . Q24H [facility] Rx#:[id number] Oral 210 500 Output: Urine 0 450 550 Other: Voiding Method Urinal Urinal Urinal # Voids 1 # Bowel Movements 1 Weight 93.1 kg General: Alert and Oriented x3, No Acute Distress Head: Normocytic, Atraumatic Neck: Supple Mouth: No Lesions, No Thrush Eyes: Non-sclerotic No Palpable cervical, supraclavicular, axillary adenopathy Heart: Regular Rate, Regular Rhythm Lungs: Clear to Ausculations, No Wheeze, No Rhonchi, Diminishe bilateral lower lobes, No increased respiratory effort noted Abdomen: Soft, Non-Distended, Non-Tended, BSx4 Extremities: No Edema, Equal Strength Neurological: No Focal Defects: No sensory or motor deficits noted Psych: Calm and cooperative Results CBC & Chem 7: 11/11/18 04:51 11/11/18 04:51 Labs: Abnormal Lab Results - Last 24 Hours (Table) 11/10/18 11/11/18 11/11/18 Range/Units 19:53 04:51 04:51 APTT 168.9 H* 88.3 H (22.0-30.0) sec Chloride 108 H (98-107) mmol/L 11/11/18 Range/Units 11:57 APTT 71.1 H (22.0-30.0) sec Chloride (98-107) mmol/L CT scan - chest: report reviewed Venous US: report reviewed Assessment and Plan Plan: Assessment and Recommendations: Acute New RLE DVT: - Appears provoked with recent car trip Acute NEW Saddle Pulmonary Emoboli Skin Cancer: - Left Ear Large flap and recent surgical resection noted. - If no recent CT scan neck and head - resonable Plan: - Agree with Heparin drip at this time, plan for PO DOAC, Xarelto at discharge. Can have case management check coverage with insurance, prefer to have filled pr ior to patient's discharge. - Xarelto is to be started immediately when heparin drip is stopped, first dose in hospital, then provide script to confirm 12 hours later dose number 2, 15mg po q12 hours x7 days then 20mg daily - With Recent history of skin cancer, will recommend further work-up to confirm no metastasis. - Hypercoaguable work-up can be considered as outpatient, although appears p rovoked, final decision can be determined at follow-up with hematology in 4-5 weeks. Minimum length of anticoagulation 6months to year. Yeimi Ledezma AOP
--- NOTE | 2018-11-11 14:46 | P.PN ---
Subjective Progress Note Date: 11/11/18 A 83-year-old male patient, with known history of hypertension and hyperlipidemia, presents today with sudden onset shortness of breath. The patient is retired. The patient is back and forth to [place] and his last trip back to [place] was in mid September. He also has history of a basal cell carcinoma of the skin behind his left ear and the patient underwent a surgical resection by dermatology few weeks back. He states that he is quite active and he does not need a sedentary lifestyle. No cough pain. No swelling in lower extremities. No pleurisy. No hemoptysis. He presented with worsening joão rtness of breath and some lightheadedness. This started this morning. His vital signs are all stable. His troponins were at 0.015. BNP was 209. D-dimer was positive at 13.67. CAT scan of the chest showed a saddle embolism and the patient was started on IV heparin and the patient was transferred to the intensive care unit. At this point in time, the patient is on 2 L of oxygen nasal cannula. No cough. No sputum production. No pleurisy. No chest pain. Doppler of the lower extremity and echocardiogram is still pending for now. The patient has never taken any form of blood thinners. No history of any GI bleed. No hematemesis. No melanotic stools. No other complaints otherwise for now. No personal or family history of previous DVT or pulmonary embolism. He has had previous history of melanoma that was resected from the left shoulder area and previous history of another melanoma that was resected from his left lower extremity. No history of any metastatic disease regarding his skin cancer. On 11/11/2018 and seeing this patient for a follow-up. The patient remains on I V heparin. Doing extremely well. No somatic and shortness of breath. No cough sputum production chest masses or wheezing. No hemoptysis no pleurisy. No hematoma formation and the surgical wound site over the left posterior auricular area/scalp area is dry clean and intact. Minimal amount of blood oozing. This is nonsignificant at all. Hemoglobin stable at 13.4. PTT is at 71. The patient had a Doppler of the lower extremity and the patient was found to have a DVT in the right femoral/popliteal vein area. Left lower oximetry was free of any DVT. Echocardiogram showed a preserved LV function with an ejection fraction of 55-60%. There is some moderate enlargement of the right ventricle. Estimated pulmonary artery pressure is 53. Rest of the cardiac structures are all within normal limits. Inferior vena cava is collapsible with an estimated are a pressure of 5 mmHg. Moderate degree of pulmonary hypertension is noted. Left atrium size and function is within normal limits. Objective - Vital Signs Vital signs: Vital Signs Temp 98.6 F 11/11/18 12:00 Pulse 90 11/11/18 13:00 Resp 17 11/11/18 13:00 BP 146/93 11/11/18 13:00 Pulse Ox 94 L 11/11/18 13:00 Intake & Output 11/10/18 11/11/18 11/11/18 18:59 06:59 18:59 Intake Total 375 1173.246 805 Output Total 0 450 550 Balance 375 723.246 255 Weight 92.986 kg 93.1 kg Intake: IV 225 900 225 Sodium Chloride 0.9% 1, 225 900 225 000 ml @ 20 mls/hr IV . Q24H [facility] Rx#:[id number] Intake, IV Titration 213.246 80 Amount Heparin Sod,Pork in 0.45% 213.246 NaCl 25,000 unit In 0.45 % NaCl 1 250ml.bag @ 18 UNITS/KG/HR 16.737 mls/hr IV .[id number] [facility] Rx#: [id number] Sodium Chloride 0.9% 1, 80 000 ml @ 20 mls/hr IV . Q24H [facility] Rx#:[id number] Oral 150 60 500 Output: Urine 0 450 550 Other: Voiding Method Toilet Urinal Urinal # Voids 1 # Bowel Movements 1 - Exam Gen. appearance, comfortable likely distress Head exam was generally normal. There was no scleral icterus or corneal arcus. Mucous membranes were moist. Neck was supple and without jugular venous distension, thyromegaly, or carotid bruits. Carotids were easily palpable bilaterally. There was no adenopathy. The patient has a skin lesion resected from the left posterior area and the children are all in place. The surgical wound site is dry clean and intact. Lungs were clear to auscultation and percussion, and with normal diaphragmatic excursion. No wheezes or rales were noted. Cardiac exam revealed the PMI to be normally situated and sized. The rhythm was regular and no extrasystoles were noted during several minutes of auscultation. The first and second heart sounds were normal and physiologic splitting of the second heart sound was noted. There were no murmurs, rubs, clicks, or gallops. Abdominal exam revealed normal bowel sounds. The abdomen was soft, non-tender, and without masses, organomegaly, or appreciable enlargement of the abdominal aorta. Examination of the extremities revealed easily palpable radial, femoral and pedal pulses. There was no cyanosis, clubbing or edema. Examination of the skin revealed no evidence of significant rashes, suspicious appearing nevi or other concerning lesions. The patient has scars of previous melanoma resection from his left shoulder area and lower extremity/thigh area. The patient also has another area of incision that is healing for now and the sutures are in place and the retroauricular area behind his left ear. Neurologically is awake and alert and there is no focal neurological deficits. - Labs CBC & Chem 7: 11/11/18 04:51 11/11/18 04:51 Labs: Abnormal Lab Results - Last 24 Hours (Table) 11/10/18 11/11/18 11/11/18 Range/Units 19:53 04:51 04:51 APTT 168.9 H* 88.3 H (22.0-30.0) sec Chloride 108 H (98-107) mmol/L Lactate Dehydrogenase 669 H (313-618) U/L Total Protein 5.8 L (6.3-8.2) g/dL Albumin 3.4 L (3.5-5.0) g/dL 11/11/18 Range/Units 11:57 APTT 71.1 H (22.0-30.0) sec Chloride (98-107) mmol/L Lactate Dehydrogenase (313-618) U/L Total Protein (6.3-8.2) g/dL Albumin (3.5-5.0) g/dL Assessment and Plan Plan: 1 acute bilateral pulmonary embolism with secondary shortness of breath, unprovoked event currently on IV heparin. Hemodynamically stable. The patient has moderate degree of pulmonary hypertension on echocardiogram. RV is mild to moderately enlarged. Nevertheless no significant strain pattern and the patient is hemodynamically stable and the patient tolerated his pulmonary embolism quite well without any significant hemodynamic instability with hypoxemia. Currently on IV heparin. The patient was diagnosed having a right femoral/popliteal DVT. 2 shortness of breath secondary to above, improving 3 history of melanoma 4 history of basal cell carcinoma of the posterior scalp and the retroauricular area and the patient had a surgical resection 5 hypertension Plan Continue IV heparin. Doppler was noted. Echocardiogram was noted. We'll transition this patient to oral Eliquis on outpatient basis. This will be done within next 24 hours. The patient became denies to follow 24 hours and then moved out and will continue to follow. Hypercoagulable workup at a later stage. This is a most likely a unprovoked event. Favor long-term and coagulation especially with the significant clot burden.
[2018-11-12] MEDS: HEPARIN SOD,PORK IN 0.45% NACL 25,000 UNIT in 0.45% NACL 1 250ML.BAG IV SCH (03:54)
[2018-11-12 05:59] LABS: Basophils # (A) 0.1 k/uL (0-0.2); Basophils % (A) 1 %; Eosinophils # (A) 0.6 k/uL (0-0.7); Eosinophils % (A) 7 %; HCT 44.1 % (39.0-53.0); HGB 13.8 gm/dL (13.0-17.5); Lymphocytes # (A) 1.1 k/uL (1.0-4.8); Lymphocytes % (A) 12 %; MCH 28.6 pg (25.0-35.0); MCHC 31.3 g/dL (31.0-37.0); MCV 91.6 fL (80.0-100.0); Mean Platelet Volume 7.8; Monocytes # (A) 0.6 k/uL (0-1.0); Monocytes % (A) 6 %; Neutrophils # (A) 6.4 k/uL (1.3-7.7); Neutrophils % (A) 72 %; Platelet Count 205 k/uL (150-450); RBC 4.82 m/uL (4.30-5.90); RDW 13.6 % (11.5-15.5); WBC 8.9 k/uL (3.8-10.6)
[2018-11-12 06:32] LABS: African American GFR (CKD) >90 (>60 ml/min/1.73 sqM); Anion Gap 9 mmol/L; Blood Urea Nitrogen 19 mg/dL (9-20); Calcium 8.8 mg/dL (8.4-10.2); Carbon Dioxide 24 mmol/L (22-30); Chloride 107 mmol/L (98-107); Glucose 101 mg/dL (74-99); Potassium 4.3 mmol/L (3.5-5.1); Sodium 140 mmol/L (137-145)
[2018-11-12] MEDS: PANTOPRAZOLE 40 MG TABLET PO SCH (07:04)
[2018-11-12] MEDS: LISINOPRIL 20 MG TAB PO SCH (08:51)
[2018-11-12] MEDS: CEPHALEXIN 500 MG CAP PO SCH ×3 (08:52→20:27)
[2018-11-12] MEDS: ATORVASTATIN 10 MG TAB PO SCH (08:52)
[2018-11-12] MEDS: APIXABAN 5 MG TAB PO SCH ×2 (11:53→20:27)
--- NOTE | 2018-11-12 13:31 | P.PN ---
Subjective Progress Note Date: 11/12/18 Principal diagnosis: PE Patient was seen and examined. No acute events overnight. Patient denies any chest pain, shortness breath or palpitations. No nausea or vomiting. No fever or chills. Objective - Vital Signs Vital signs: Vital Signs Temp 97.8 F 11/12/18 12:00 Pulse 75 11/12/18 12:00 Resp 13 11/12/18 12:00 BP 131/81 11/12/18 12:00 Pulse Ox 96 11/12/18 12:00 Intake & Output 11/11/18 11/12/18 11/12/18 18:59 06:59 18:59 Intake Total 1355 490 458.92 Output Total 550 1200 400 Balance 805 -710 58.92 Weight 91.4 kg Intake: IV 225 220 120 Sodium Chloride 0.9% 1, 225 220 120 000 ml @ 20 mls/hr IV . Q24H [facility] Rx#:[id number] Intake, IV Titration 180 270 98.92 Amount Heparin Sod,Pork in 0.45% 250 98.92 NaCl 25,000 unit In 0.45 % NaCl 1 250ml.bag @ 18 UNITS/KG/HR 16.737 mls/hr IV .[id number] [facility] Rx#: [id number] Sodium Chloride 0.9% 1, 180 20 000 ml @ 20 mls/hr IV . Q24H [facility] Rx#:[id number] Oral 950 240 Output: Urine 550 1200 400 Other: Voiding Method Urinal Urinal Urinal # Bowel Movements 1 - Exam General: [non toxic], [no distress], [appears at stated age] Derm: [warm], [dry] Head: [atraumatic], [normocephalic], [symmetric], [flap was stitches over the left neck, with clotted blood] Eyes: [EOMI], [no lid lag], [anicteric sclera] Mouth: [no lip lesion], [mucus membranes moist] Cardiovascular: [S1S2 reg], [no murmur], [positive DP pulse bilateral], Lungs: [CTA bilateral], [no rhonchi, no rales] , [no accessory muscle use] Abdominal: [soft], [ nontender to palpation], [no guarding], [no appreciable organomegaly] Ext: [no gross muscle atrophy], [no edema], [no contractures] Neuro: [no focal neuro deficits] Psych: [Alert], [oriented], [appropriate affect] - Labs CBC & Chem 7: 11/12/18 05:23 11/12/18 05:23 Labs: Abnormal Lab Results - Last 24 Hours (Table) 11/11/18 11/12/18 11/12/18 Range/Units 04:51 05:23 05:23 APTT 59.8 H (22.0-30.0) sec Glucose 101 H (74-99) mg/dL Lactate Dehydrogenase 669 H (313-618) U/L Total Protein 5.8 L (6.3-8.2) g/dL Albumin 3.4 L (3.5-5.0) g/dL Assessment and Plan Assessment: Assessment and Plan Acute pulmonary embolus Elevated BUN History of skin cancer Hypertension Hyperlipidemia Elevated d-dimer. As seen on chest CTA. Risk factors include history of cancer and drives to [place]. Lower extremity duplex shows right lower extremity DVT. Echocardiogram shows EF 55-60% with concentric LVH. Plans: O2 per NC to maintain O2 saturation greater than 92%. Telemetry monitoring. Heparin drip discontinued and Eliquis started. Follow pulmonology consultation. Follow hematology consultation. BUN 21, creatinine within normal limits. Likely secondary to dehydration. Plans: Resolved. Recently underwent biopsy of the right shoulder and flap performed on the left neck. Plans: Continue Keflex as prescribed. Follow Gudelia in the outpatient setting. BP 131/81 Plans: Continue ramipril. Monitor vitals, adjust medications as necessary. Plans: Continue Zocor. Patient admitted for saddle embolus. Transitioned to oral anticoagulant. Pulmonology and hematology consulted. Hemodynamic monitoring. Likely DC in 1-2 days.
--- NOTE | 2018-11-12 14:59 | P.PN ---
Subjective Progress Note Date: 11/12/18 A 83-year-old male patient, with known history of hypertension and hyperlipidemia, presents today with sudden onset shortness of breath. The patient is retired. The patient is back and forth to [place] and his last trip back to [place] was in mid September. He also has history of a basal cell carcinoma of the skin behind his left ear and the patient underwent a surgical resection by dermatology few weeks back. He states that he is quite active and he does not need a sedentary lifestyle. No cough pain. No swelling in lower extremities. No pleurisy. No hemoptysis. He presented with worsening joão rtness of breath and some lightheadedness. This started this morning. His vital signs are all stable. His troponins were at 0.015. BNP was 209. D-dimer was positive at 13.67. CAT scan of the chest showed a saddle embolism and the patient was started on IV heparin and the patient was transferred to the intensive care unit. At this point in time, the patient is on 2 L of oxygen nasal cannula. No cough. No sputum production. No pleurisy. No chest pain. Doppler of the lower extremity and echocardiogram is still pending for now. The patient has never taken any form of blood thinners. No history of any GI bleed. No hematemesis. No melanotic stools. No other complaints otherwise for now. No personal or family history of previous DVT or pulmonary embolism. He has had previous history of melanoma that was resected from the left shoulder area and previous history of another melanoma that was resected from his left lower extremity. No history of any metastatic disease regarding his skin cancer. On 11/11/2018 and seeing this patient for a follow-up. The patient remains on I V heparin. Doing extremely well. No somatic and shortness of breath. No cough sputum production chest masses or wheezing. No hemoptysis no pleurisy. No hematoma formation and the surgical wound site over the left posterior auricular area/scalp area is dry clean and intact. Minimal amount of blood oozing. This is nonsignificant at all. Hemoglobin stable at 13.4. PTT is at 71. The patient had a Doppler of the lower extremity and the patient was found to have a DVT in the right femoral/popliteal vein area. Left lower oximetry was free of any DVT. Echocardiogram showed a preserved LV function with an ejection fraction of 55-60%. There is some moderate enlargement of the right ventricle. Estimated pulmonary artery pressure is 53. Rest of the cardiac structures are all within normal limits. Inferior vena cava is collapsible with an estimated are a pressure of 5 mmHg. Moderate degree of pulmonary hypertension is noted. Left atrium size and function is within normal limits. On 11/12/2018, the patient is doing well. He is able to sit up on a chair. He remains on IV heparin. He did have some minimal amount of blood oozing from the wound over the scalp and the retroauricular area and he has developed a soft hematoma. We are still watching that. The patient meanwhile has been kept on IV heparin. No drop in hemoglobin and I intend to switch him to Eliquis. The patient is hemodynamically stable. No chest pain. No pleurisy. No hemoptysis. No cough. No sputum production. No hemodynamic instability at this point in time. Objective - Vital Signs Vital signs: Vital Signs Temp 97.8 F 11/12/18 12:00 Pulse 80 11/12/18 14:00 Resp 18 11/12/18 14:00 BP 137/86 11/12/18 14:00 Pulse Ox 95 11/12/18 14:00 Intake & Output 11/11/18 11/12/18 11/12/18 18:59 06:59 18:59 Intake Total 1355 490 458.92 Output Total 550 1200 700 Balance 805 -710 -241.08 Weight 91.4 kg Intake: IV 225 220 120 Sodium Chloride 0.9% 1, 225 220 120 000 ml @ 20 mls/hr IV . Q24H [facility] Rx#:[id number] Intake, IV Titration 180 270 98.92 Amount Heparin Sod,Pork in 0.45% 250 98.92 NaCl 25,000 unit In 0.45 % NaCl 1 250ml.bag @ 18 UNITS/KG/HR 16.737 mls/hr IV .[id number] [facility] Rx#: [id number] Sodium Chloride 0.9% 1, 180 20 000 ml @ 20 mls/hr IV . Q24H [facility] Rx#:[id number] Oral 950 240 Output: Urine 550 1200 700 Other: Voiding Method Urinal Urinal Urinal # Bowel Movements 1 1 - Exam Gen. appearance, comfortable likely distress Head exam was generally normal. There was no scleral icterus or corneal arcus. Mucous membranes were moist. Neck was supple and without jugular venous distension, thyromegaly, or carotid bruits. Carotids were easily palpable bilaterally. There was no adenopathy. The patient has a skin lesion resected from the left posterior area and the children are all in place. The surgical wound site is dry clean and intact. Lungs were clear to auscultation and percussion, and with normal diaphragmatic excursion. No wheezes or rales were noted. Cardiac exam revealed the PMI to be normally situated and sized. The rhythm was regular and no extrasystoles were noted during several minutes of auscultation. The first and second heart sounds were normal and physiologic splitting of the second heart sound was noted. There were no murmurs, rubs, clicks, or gallops. Abdominal exam revealed normal bowel sounds. The abdomen was soft, non-tender, and without masses, organomegaly, or appreciable enlargement of the abdominal aorta. Examination of the extremities revealed easily palpable radial, femoral and pedal pulses. There was no cyanosis, clubbing or edema. Examination of the skin revealed no evidence of significant rashes, suspicious appearing nevi or other concerning lesions. The patient has scars of previous melanoma resection from his left shoulder area and lower extremity/thigh area. The patient also has another area of incision that is healing for now and the sutures are in place and the retroauricular area behind his left ear. The patient has a small and soft hematoma formation on that decision and there is no active bleeding. The incision site is quite dry at this point in time and there is no oozing of any bloody material from the wound surface. Neurologically is awake and alert and there is no focal neurological deficits. - Labs CBC & Chem 7: 11/12/18 05:23 11/12/18 05:23 Labs: Abnormal Lab Results - Last 24 Hours (Table) 11/12/18 11/12/18 Range/Units 05:23 05:23 APTT 59.8 H (22.0-30.0) sec Glucose 101 H (74-99) mg/dL Assessment and Plan Plan: 1 acute bilateral pulmonary embolism with secondary shortness of breath, unprovoked event currently on IV heparin. Hemodynamically stable. The patient has moderate degree of pulmonary hypertension on echocardiogram. RV is mild to moderately enlarged. Nevertheless no significant strain pattern and the patient is hemodynamically stable and the patient tolerated his pulmonary embolism quite well without any significant hemodynamic instability with hypoxemia. Currently on IV heparin. The patient was diagnosed having a right femoral/popliteal DVT. 2 shortness of breath secondary to above, improving, and almost resolved 3 history of melanoma 4 history of basal cell carcinoma of the posterior scalp and the retroauricular area and the patient had a surgical resection 5 hypertension 6 soft hematoma over the surgical incision site behind his left ear on the scalp and the incision edge is covered with dried bloody material with a soft hematoma underlying. Hemoglobin is stable for now. We'll continue the anticoagulation. Plan Start the patient Eliquis. Discontinue the IV heparin. Monitor hemoglobin. Monitor the scalp. Transfer this patient to a medical floor at a later stage with telemetry. Hemoglobin stable at 13.8. Renal function is stable. We'll continue to follow.
[2018-11-12] MEDS: SODIUM CHLORIDE 0.9% 1,000 ML IV SCH (17:29)
[2018-11-13 05:13] LABS: Basophils # (A) 0.1 k/uL (0-0.2); Basophils % (A) 1 %; Eosinophils # (A) 0.7 k/uL (0-0.7); Eosinophils % (A) 7 %; HCT 42.8 % (39.0-53.0); Lymphocytes # (A) 1.2 k/uL (1.0-4.8); Lymphocytes % (A) 12 %; MCH 28.9 pg (25.0-35.0); MCHC 32.6 g/dL (31.0-37.0); MCV 88.5 fL (80.0-100.0); Mean Platelet Volume 7.6; Monocytes # (A) 0.8 k/uL (0-1.0); Monocytes % (A) 9 %; Neutrophils # (A) 6.8 k/uL (1.3-7.7); Neutrophils % (A) 69 %; Platelet Count 236 k/uL (150-450); RBC 4.84 m/uL (4.30-5.90); RDW 13.8 % (11.5-15.5); WBC 9.8 k/uL (3.8-10.6)
[2018-11-13 05:16] LABS: ALT 34 U/L (21-72); AST 27 U/L (17-59); African American GFR (CKD) >90 (>60 ml/min/1.73 sqM); Albumin 3.4 g/dL (3.5-5.0); Alkaline Phosphatase 59 U/L (38-126); Anion Gap 6 mmol/L; Blood Urea Nitrogen 20 mg/dL (9-20); Carbon Dioxide 29 mmol/L (22-30); Chloride 104 mmol/L (98-107); Glucose 93 mg/dL (74-99); Potassium 4.3 mmol/L (3.5-5.1); Sodium 139 mmol/L (137-145); Total Bilirubin 0.6 mg/dL (0.2-1.3); Total Protein 5.8 g/dL (6.3-8.2)
[2018-11-13] MEDS: PANTOPRAZOLE 40 MG TABLET PO SCH (07:09)
[2018-11-13] MEDS: ATORVASTATIN 10 MG TAB PO SCH (09:05)
[2018-11-13] MEDS: LISINOPRIL 20 MG TAB PO SCH (09:05)
[2018-11-13] MEDS: APIXABAN 5 MG TAB PO SCH (09:05)
[2018-11-13] MEDS: CEPHALEXIN 500 MG CAP PO SCH (09:06)
--- NOTE | 2018-11-13 12:13 | P.DS ---
Providers Date of admission: 11/10/18 14:45 Expected date of discharge: 11/13/18 Attending physician: Jaquan Trinidad MD Consults: 11/10/18 14:24 Consult Physician Stat Consulting Provider: Chong Gan Consult Reason/Comments: saddle PE Do you want consulting provider notified?: Already Contacted 11/10/18 18:04 Consult Physician Stat Consulting Provider: Jerome Angelo Consult Reason/Comments: Saddle PE Do you want consulting provider notified?: Yes Primary care physician: Arti Atkinson MD Hospital Course: 83-year-old male with PMH of hypertension, hyperlipidemia presents the ED for shortness of breath and lightheadedness. Patient states that he was 10 minutes into moving his lawn when he experienced a sudden onset of shortness of breath associated with light headedness. Patient states that he is usually able to mow the lawn without difficulty. He mows the lawn once a week for 30 minute to one hour. Patient states that he walks to his mailbox daily, which is [address] without difficulty. He is able to climb one flight of stairs without difficulty. Patient does reports frequent trips to [place], most recently in mid-September. Him and his spent 3 days driving back this time. Patient denies any headache, lower extremity edema, nausea, vomiting, cough, chest, palpitations, changes in urination or bowel habits. No changes in appetite or weight. In the ED, vital signs were stable. CBC was unremarkable. Coagulation panel was negative. CMP showed a BUN of 21 and glucose of 119. Troponin was 0.015. BNP was 209. D-dimer was elevated at 13.67. CTA of the chest showed saddle embolus. Patient is admitted to ICU for hemodynamic monitoring with pulmonology on consult. Pulmonary embolus was thought to be unprovoked. Right lower extremity duplex showed right lower extremity DVT. Echocardiogram showed EF 55-60% with concentric LVH. Patient was initially started on a heparin drip and pulmonology was consulted. Pulmonology recommended transitioning heparin to Eliquis. Patient initially had an elevated BUN of 21 which resolved on day 2. Patient was noted to have a flap on the left side of the neck from a biopsy by his dermatolo gist. There was some oozing of blood after starting Eliquis from that site without any significant bleeding. Patient was seen and examined. No acute events overnight. Patient denies any chest pain, shortness of breath or palpitations. General: [non toxic], [no distress], [appears at stated age] Derm: [warm], [dry] Head: [atraumatic], [normocephalic], [symmetric], [flap was stitches over the left neck, with clotted blood] Eyes: [EOMI], [no lid lag], [anicteric sclera] Mouth: [no lip lesion], [mucus membranes moist] Cardiovascular: [S1S2 reg], [no murmur], [positive DP pulse bilateral], Lungs: [CTA bilateral], [no rhonchi, no rales] , [no accessory muscle use] Abdominal: [soft], [ nontender to palpation], [no guarding], [no appreciable organomegaly] Ext: [no gross muscle atrophy], [no edema], [no contractures] Neuro: [no focal neuro deficits] Psych: [Alert], [oriented], [appropriate affect] Assessment and Plan Acute pulmonary embolus Elevated BUN History of skin cancer Hypertension Hyperlipidemia Elevated d-dimer. As seen on chest CTA. Risk factors include history of cancer and drives to [place]. Lower extremity duplex shows right lower extremity DVT. Echocardiogram shows EF 55-60% with concentric LVH. Plans: O2 per NC to maintain O2 saturation greater than 92%. Telemetry monitoring. Heparin drip discontinued and Eliquis started. Follow pulmonology consultation. Follow hematology consultation. BUN 21, creatinine within normal limits. Likely secondary to dehydration. Plans: Resolved. Recently underwent biopsy of the right shoulder and flap performed on the left neck. Plans: Continue Keflex as prescribed. Follow [facility] in the outpatient setting. BP 138/72 Plans: Continue ramipril. Monitor vitals, adjust medications as nec essary. Plans: Continue Zocor. Patient admitted for saddle embolus. Transitioned to oral anticoagulant. Pulmonology and hematology consulted. Hemodynamic monitoring. DC today. Pertinent Studies: chest x-ray, his chest CTA, echocardiogram, venous duplex Patient Condition at Discharge: Fair Plan - Discharge Summary Discharge Rx Participant: Yes New Discharge Prescriptions: New Apixaban [Eliquis Starter Pack (for VTE)] 0 mg PO DIRECTED 30 Days #1 pack Apixaban [Eliquis] 10 mg PO BID tab Apixaban [Eliquis] 5 mg PO BID tab Continue Simvastatin [Zocor] 20 mg PO DAILY Cephalexin [Keflex] 500 mg PO TID Ramipril 10 mg PO DAILY Ramipril 5 mg PO DAILY Discharge Medication List Cephalexin [Keflex] 500 mg PO TID 11/10/18 [History] Ramipril 5 mg PO DAILY 11/10/18 [History] Ramipril 10 mg PO DAILY 11/10/18 [History] Simvastatin [Zocor] 20 mg PO DAILY 11/10/18 [History] Apixaban [Eliquis Starter Pack (for VTE)] 0 mg PO DIRECTED 30 Days #1 pack 11/11/18 [Rx] Apixaban [Eliquis] 5 mg PO BID tab 11/13/18 [Rx] Apixaban [Eliquis] 10 mg PO BID tab 11/13/18 [Rx] Follow up Appointment(s)/Referral(s): Arti Atkinson MD [Primary Care Provider] - 1-2 days Jerome Angelo MD [STAFF PHYSICIAN] - 1 Week Chong Gan MD [STAFF PHYSICIAN] - 1 Week Activity/Diet/Wound Care/Special Instructions: Earnest copay $40/month Discharge Disposition: HOME SELF-CARE
[2018-11-13 12:33] VITALS: RESP 16; TEMP 98
--- NOTE | 2018-11-13 12:44 | P.PN ---
Subjective Progress Note Date: 11/13/18 A 83-year-old male patient, with known history of hypertension and hyperlipidemia, presents today with sudden onset shortness of breath. The patient is retired. The patient is back and forth to [place] and his last trip back to [place] was in mid September. He also has history of a basal cell carcinoma of the skin behind his left ear and the patient underwent a surgical resection by dermatology few weeks back. He states that he is quite active and he does not need a sedentary lifestyle. No cough pain. No swelling in lower extremities. No pleurisy. No hemoptysis. He presented with worsening joão rtness of breath and some lightheadedness. This started this morning. His vital signs are all stable. His troponins were at 0.015. BNP was 209. D-dimer was positive at 13.67. CAT scan of the chest showed a saddle embolism and the patient was started on IV heparin and the patient was transferred to the intensive care unit. At this point in time, the patient is on 2 L of oxygen nasal cannula. No cough. No sputum production. No pleurisy. No chest pain. Doppler of the lower extremity and echocardiogram is still pending for now. The patient has never taken any form of blood thinners. No history of any GI bleed. No hematemesis. No melanotic stools. No other complaints otherwise for now. No personal or family history of previous DVT or pulmonary embolism. He has had previous history of melanoma that was resected from the left shoulder area and previous history of another melanoma that was resected from his left lower extremity. No history of any metastatic disease regarding his skin cancer. On 11/11/2018 and seeing this patient for a follow-up. The patient remains on I V heparin. Doing extremely well. No somatic and shortness of breath. No cough sputum production chest masses or wheezing. No hemoptysis no pleurisy. No hematoma formation and the surgical wound site over the left posterior auricular area/scalp area is dry clean and intact. Minimal amount of blood oozing. This is nonsignificant at all. Hemoglobin stable at 13.4. PTT is at 71. The patient had a Doppler of the lower extremity and the patient was found to have a DVT in the right femoral/popliteal vein area. Left lower oximetry was free of any DVT. Echocardiogram showed a preserved LV function with an ejection fraction of 55-60%. There is some moderate enlargement of the right ventricle. Estimated pulmonary artery pressure is 53. Rest of the cardiac structures are all within normal limits. Inferior vena cava is collapsible with an estimated are a pressure of 5 mmHg. Moderate degree of pulmonary hypertension is noted. Left atrium size and function is within normal limits. On 11/12/2018, the patient is doing well. He is able to sit up on a chair. He remains on IV heparin. He did have some minimal amount of blood oozing from the wound over the scalp and the retroauricular area and he has developed a soft hematoma. We are still watching that. The patient meanwhile has been kept on IV heparin. No drop in hemoglobin and I intend to switch him to Eliquis. The patient is hemodynamically stable. No chest pain. No pleurisy. No hemoptysis. No cough. No sputum production. No hemodynamic instability at this point in time. On 11/13/2018 I'm seeing this patient for a follow-up in the patient doing well. The hematoma in the left scalp area is soft and unchanged compared to yesterday. The patient is currently on oral Eliquis. He is doing extremely well. Hemodynamically stable. Ambulating. No drop in hemoglobin. No hypotension. No tachycardia. No oxygen desaturation. The patient has no dizziness no chest pain. Continue Eliquis. The regimen will be given 10 mg by mouth twice a day for one week and then 5 mg twice a day. We'll see me on outpatient basis. Follow-up with dermatology regarding the sutures in the left scalp area and the soft hematoma needs to be monitored very closely. Objective - Vital Signs Vital signs: Vital Signs Temp 98 F 11/13/18 12:00 Pulse 77 11/13/18 12:00 Resp 16 11/13/18 12:00 BP 150/89 11/13/18 12:00 Pulse Ox 95 11/13/18 12:00 Intake & Output 11/12/18 11/13/18 11/13/18 18:59 06:59 18:59 Intake Total 938.92 0 140 Output Total 700 775 250 Balance 238.92 -775 -110 Weight 92.1 kg Intake: IV 120 40 Sodium Chloride 0.9% 1, 120 40 000 ml @ 20 mls/hr IV . Q24H [facility] Rx#:[id number] Intake, IV Titration 98.92 Amount Heparin Sod,Pork in 0.45% 98.92 NaCl 25,000 unit In 0.45 % NaCl 1 250ml.bag @ 18 UNITS/KG/HR 16.737 mls/hr IV .[id number] [facility] Rx#: [id number] Oral 720 0 100 Output: Urine 700 775 250 Other: Voiding Method Urinal Urinal Urinal # Voids 1 1 1 # Bowel Movements 1 1 - Exam Gen. appearance, comfortable likely distress Head exam was generally normal. There was no scleral icterus or corneal arcus. Mucous membranes were moist. Neck was supple and without jugular venous distension, thyromegaly, or carotid bruits. Carotids were easily palpable bilaterally. There was no adenopathy. The patient has a skin lesion resected from the left posterior area and the children are all in place. The surgical wound site is dry clean and intact. Lungs were clear to auscultation and percussion, and with normal diaphragmatic excursion. No wheezes or rales were noted. Cardiac exam revealed the PMI to be normally situated and sized. The rhythm was regular and no extrasystoles were noted during several minutes of auscultation. The first and second heart sounds were normal and physiologic splitting of the second heart sound was noted. There were no murmurs, rubs, clicks, or gallops. Abdominal exam revealed normal bowel sounds. The abdomen was soft, non-tender, and without masses, organomegaly, or appreciable enlargement of the abdominal aorta. Examination of the extremities revealed easily palpable radial, femoral and pedal pulses. There was no cyanosis, clubbing or edema. Examination of the skin revealed no evidence of significant rashes, suspicious appearing nevi or other concerning lesions. The patient has scars of previous melanoma resection from his left shoulder area and lower extremity/thigh area. The patient also has another area of incision that is healing for now and the sutures are in place and the retroauricular area behind his left ear. The patient has a small and soft hematoma formation on that decision and there is no active bleeding. The incision site is quite dry at this point in time and there is no oozing of any bloody material from the wound surface. Neurologically is awake and alert and there is no focal neurological deficits. - Labs CBC & Chem 7: 11/13/18 04:24 11/13/18 04:24 Labs: Abnormal Lab Results - Last 24 Hours (Table) 11/13/18 Range/Units 04:24 Total Protein 5.8 L (6.3-8.2) g/dL Albumin 3.4 L (3.5-5.0) g/dL Assessment and Plan Plan: 1 acute bilateral pulmonary embolism with secondary shortness of breath, unprovoked event currently on IV heparin. Hemodynamically stable. The patient has moderate degree of pulmonary hypertension on echocardiogram. RV is mild to moderately enlarged. Nevertheless no significant strain pattern and the patient is hemodynamically stable and the patient tolerated his pulmonary embolism quite well without any significant hemodynamic instability with hypoxemia. The patient was diagnosed having a right femoral/popliteal DVT. The patient was switched Eliquis. Hemodynamically stable. Asymptomatic. 2 shortness of breath secondary to above, improving, and almost resolved 3 history of melanoma 4 history of basal cell carcinoma of the posterior scalp and the retroauricular area and the patient had a surgical resection 5 hypertension 6 soft hematoma over the surgical incision site behind his left ear on the scalp and the incision edge is covered with dried bloody material with a soft hematoma underlying. Hemoglobin is stable for now. We'll continue the anticoagulation. Plan Antinea Eliquis per protocol. Monitor the surgical wound site over the left scalp area. Monitor the soft hematoma. The patient can be discharged home to followed up with dermatology and with his primary care physician. We'll be glad also to follow up this patient on outpatient basis regarding his palmar embolism.
[2018-11-13 14:54] VITALS: BP 139/84; PULSE 93
[2018-11-19] MEDS ORDERED: APIXABAN 5 MG TAB PO SCH (09:00)
== END 2018-11-13 15:53 | disposition home or self-care (01) | DRG 176 ==
LOC: EC 10:46 → 2SICU 14:45
PROVIDERS: ADMIT Family Medicine; ATTEND Family Medicine
DX: I26.92 Saddle embolus of pulmonary artery without acute cor pulmonale (principal); I82.411 Acute embolism and thrombosis of right femoral vein; E78.00 Pure hypercholesterolemia, unspecified; E78.5 Hyperlipidemia, unspecified; E86.0 Dehydration; I10 Essential (primary) hypertension; I27.20 Pulmonary hypertension, unspecified; Z79.899 Other long term (current) drug therapy; Z85.820 Personal history of malignant melanoma of skin
CPT/HCPCS: 36415; 71046; 71275; 80048; 80053; 83615; 83735; 83880; 84100; 84484; 85025; 85379; 85610; 85730; 93005; 93306; 93970; 96365; 96376; 99285

== ENCOUNTER → 2019-02-10 | Outpatient (CLI) | payer MEDICARE ==
[2019-02-10 09:40] LABS: Basophils # (A) 0.1 k/uL (0-0.2); Basophils % (A) 1 %; Eosinophils # (A) 0.7 k/uL (0-0.7); Eosinophils % (A) 9 %; HCT 45.8 % (39.0-53.0); HGB 15.5 gm/dL (13.0-17.5); Lymphocytes # (A) 1.5 k/uL (1.0-4.8); Lymphocytes % (A) 18 %; MCH 29.4 pg (25.0-35.0); MCHC 33.9 g/dL (31.0-37.0); MCV 86.7 fL (80.0-100.0); Mean Platelet Volume 6.2; Monocytes # (A) 0.5 k/uL (0-1.0); Monocytes % (A) 7 %; Neutrophils # (A) 5.3 k/uL (1.3-7.7); Neutrophils % (A) 64 %; Platelet Count 326 k/uL (150-450); RBC 5.28 m/uL (4.30-5.90); WBC 8.3 k/uL (3.8-10.6)
[2019-02-10 18:05] LABS: African American GFR (CKD) 80.9 (60.0-200.0); Albumin 4.5 g/dL (3.80-4.90); Albumin/Globulin Ratio 2.5 (1.60-3.17); Anion Gap 10.8 mmol/L (4.00-12.00); Calcium 9.6 mg/dL (8.7-10.3); Carbon Dioxide 25.2 mmol/L (21.6-31.8); Chol/HDL Ratio 3.67; Globulin 1.8 g/dL (1.6-3.3); Potassium 4.7 mmol/L (3.5-5.5); Total Bilirubin 0.5 mg/dL (0.3-1.2); Total Protein 6.3 g/dL (6.2-8.2)
== END | disposition home or self-care (01) ==
LOC: LABWHC1 08:42
PROVIDERS: ATTEND Family Medicine
DX: I10 Essential (primary) hypertension (principal); E78.5 Hyperlipidemia, unspecified; Z12.5 Encounter for screening for malignant neoplasm of prostate
CPT/HCPCS: 80061; 80053; 85025; 36415; G0103

== ENCOUNTER → 2019-02-24 | Outpatient (CLI) | payer MEDICARE ==
--- NOTE | 2019-02-25 08:23 | CT ---
EXAMINATION TYPE: CT ChestAbdPelvis w con DATE OF EXAM: 02/24/2019 COMPARISON: CTA chest November 10, 2018. HISTORY: suspected mets, hx of melanoma CT DLP: 1296.8 mGycm. Automated Exposure Control for Dose Reduction was Utilized. CONTRAST: CT scan of the thorax, abdomen and pelvis is performed with IV Contrast, patient injected with 100 mL of Isovue 300. FINDINGS: LUNGS: Some scattered mild parenchymal scarring in both lower lungs most prominent just above diaphra gm. No suspicious nodules or masses. There is no pleural effusion or pneumothorax seen. The tracheob ronchial tree is patent. MEDIASTINUM: There are no greater than 1 cm hilar or mediastinal lymph nodes. No pericardial effus ion is seen. Heart size upper limits of normal. Mild to moderate three-vessel coronary artery calcif ication. Interval resolution of central left breast slightly more peripheral right pulmonary emboli. Moderate left ventricular dilatation. LIVER/GB: Liver is overall low dense relative to the spleen. There are a few scattered round hypodens e lesions felt to reflect thin-walled cyst PANCREAS: No significant abnormality is seen. SPLEEN: No significant abnormality is seen. ADRENALS: No significant abnormality is seen. KIDNEYS: Simple appearing partial exophytic 3.6 cm cyst upper pole of the left kidney. Few scattered smaller subcentimeter cysts are thought present bilaterally. BOWEL: Oral contrast reaches level of the hepatic flexure. No suspicious small or large bowel dilatat ion. Some diverticula in the left and sigmoid colon without CT evidence for acute diverticulitis. [place] endix incidentally noted within normal limits for medial aspect of cecum in the right upper pelvis. GENITAL ORGANS: Prostate gland is mildly enlarged. Correlate for BPH. Adjacent pelvic phleboliths. LYMPH NODES: No greater than 1cm abdominal or pelvic lymph nodes are appreciated. OSSEOUS STRUCTURES: Moderate to severe narrowing and moderate spurring in both hip joints. Additional mild to moderate multilevel spurring in the thoracolumbar spine. Facet arthropathy lower lumbar leve ls. OTHER: No significant additional abnormality is seen. IMPRESSION: No suspicious internal or external soft tissue masses to suggest metastatic melanoma.
== END | disposition home or self-care (01) ==
LOC: RADCTMAIN 15:15
PROVIDERS: ATTEND Internal Medicine Hematology & Oncology
DX: C43.9 Malignant melanoma of skin, unspecified (principal); R91.8 Other nonspecific abnormal finding of lung field
CPT/HCPCS: 82565; 84520; 71260; 74177; 36415; Q9967

== ENCOUNTER → 2020-02-12 | Outpatient (CLI) | payer MEDICARE ==
[2020-02-12 08:30] LABS: Basophils # (A) 0.1 k/uL (0-0.2); Basophils % (A) 2 %; Eosinophils # (A) 0.7 k/uL (0-0.7); Eosinophils % (A) 9 %; HCT 48.2 % (39.0-53.0); HGB 15.5 gm/dL (13.0-17.5); Lymphocytes # (A) 1.4 k/uL (1.0-4.8); Lymphocytes % (A) 19 %; MCH 29.1 pg (25.0-35.0); MCHC 32.1 g/dL (31.0-37.0); MCV 90.7 fL (80.0-100.0); Mean Platelet Volume 7.3; Monocytes # (A) 0.5 k/uL (0-1.0); Monocytes % (A) 7 %; Neutrophils # (A) 4.5 k/uL (1.3-7.7); Neutrophils % (A) 62 %; Platelet Count 237 k/uL (150-450); RBC 5.31 m/uL (4.30-5.90); RDW 12.8 % (11.5-15.5); WBC 7.3 k/uL (3.8-10.6)
[2020-02-12 17:36] LABS: Chol/HDL Ratio 3.51; LDL Cholesterol,Calculated 92.4 mg/dL (0.0-131.0); VLDL Calculation 20.6 mg/dL (5.00-40.00)
[2020-02-12 17:37] LABS: African American GFR (CKD) 80.3 (60.0-200.0); Albumin 4.2 g/dL (3.80-4.90); Albumin/Globulin Ratio 2.21 (1.60-3.17); Globulin 1.9 g/dL (1.6-3.3); Non-African American GFR(CKD) 69.3 (60.0-200.0); Potassium 4.8 mmol/L (3.5-5.5); Total Bilirubin 0.6 mg/dL (0.2-1.2); Total Protein 6.1 g/dL (6.2-8.2)
[2020-02-12 17:47] LABS: Prostate Specific Antigen 2.5 ng/mL (0.0-6.5)
== END | disposition home or self-care (01) ==
LOC: LABWHC1 07:30
PROVIDERS: ATTEND Family Medicine
DX: Z00.00 Encounter for general adult medical examination without abnormal findings (principal); N40.0 Benign prostatic hyperplasia without lower urinary tract symptoms
CPT/HCPCS: 36415; 80053; 80061; 84153; 85025